=== PATIENT | male | born 1955 | race Caucasian/White ===

== ENCOUNTER 2022-09-18 01:09 | Emergency (ER) | payer OTHER, MEDICARE | END 2022-09-18 03:15 | LOC: BURERS 01:09 | DX: S00.03XA Contusion of scalp, initial encounter (principal); Z86.73 Personal history of transient ischemic attack (TIA), and cerebral infarction without residual deficits; W06.XXXA Fall from bed, initial encounter | CPT/HCPCS: 70450 ==